=== PATIENT | female | born 1995 | race Caucasian/White ===

== ENCOUNTER 2018-08-23 17:55 | Emergency (ER) | payer SELFPAY ==
[2018-08-23 18:13] VITALS: BP 162/82
== END 2018-08-23 18:26 | disposition left against medical advice (07) ==
LOC: ED 17:55
DX: J02.9 Acute pharyngitis, unspecified (principal); Z53.21 Procedure and treatment not carried out due to patient leaving prior to being seen by health care provider

== ENCOUNTER 2019-03-26 10:15 | Emergency (ER) | payer MEDICAID ==
--- NOTE | 2019-03-26 10:39 | ED ---
Complex/Multi-Sys Presentation - HPI Summary HPI Summary: Patient is a 23 y/o F presenting to the ED for a chief complaint of near syncope on 03/26/19. Patient was showering when she began to feel she would have a syncopal episode, nausea, and a headache. Patient got out of the shower and felt shortness of breath and vision changes she describes as "seeing black. " She states her symptoms occurred for 10 minutes before resolving. Patient denies syncope or abdominal pain. Patient denies similar symptoms in the past. Patient denies a PMHx of migraine headaches, or any other significant PMHx. PSHx is significant for appendectomy. Patient denies any FMHx. She currently has her menstrual period. Patient denies tobacco, alcohol, or drug use. - History Of Current Complaint Chief Complaint: EDSyncope Time Seen by Provider: 03/26/19 10:30 Hx Obtained From: Patient Onset/Duration: Sudden Onset, Resolved Timing: Minutes - 10 minutes Severity Currently: Moderate Severity Initially: Moderate Character: Typical Headache Associated Signs And Symptoms: Positive: Headache, SOB - Resolved, Nausea, Other - Positive near syncope and vision changes, resolved. Negative: Syncope, Abdominal Pain - Allergies/Home Medications Allergies/Adverse Reactions: Allergies Allergy/AdvReac Type Severity Reaction Status Date / Time No Known Allergies Allergy Verified 03/26/19 10:22 PMH/Surg Hx/FS Hx/Imm Hx Previously Healthy: Yes Endocrine/Hematology History: Denies: Hx Diabetes Cardiovascular History: Denies: Hx Hypercholesterolemia, Hx Hypertension Sensory History: Denies: Hx Legally Blind, Hx Deafness Opthamlomology History: Denies: Hx Legally Blind EENT History: Denies: Hx Deafness - Surgical History Surgical History: Yes Surgery Procedure, Year, and Place: Appendectomy Infectious Disease History: No Infectious Disease History: Denies: Traveled Outside the [place] in Last 30 Days - Family History Known Family History: Negative: Diabetes - Social History Occupation: Employed Full-time Lives: With Family Alcohol Use: None Hx Substance Use: No Substance Use Type: Reports: None Hx Tobacco Use: No Smoking Status (MU): Never Smoked Tobacco Do You Chew or Dip Tobacco: No Have You Chewed or Dipped Tobacco in the LAST YEAR: No Have You Smoked in the Last Year: No Review of Systems Positive: Other - Positive vision changes, resolved Positive: Shortness Of Breath - Resolved Positive: Nausea - Resolved. Negative: Abdominal Pain Neurological: Other - Positive near syncope, resolved Positive: Headache - Resolved. Negative: Syncope All Other Systems Reviewed And Are Negative: Yes Physical Exam - Summary Physical Exam Summary: VITAL SIGNS: Reviewed. GENERAL: Patient is a well-developed and nourished FEMALE who is lying comfortable in the stretcher. Patient is not in any acute respiratory distress. HEAD AND FACE: No signs of trauma. No ecchymosis, hematomas or skull depressions. No sinus tenderness. EYES: PERRLA, EOMI x 2, No injected conjunctiva, no nystagmus. EARS: Hearing grossly intact. Ear canals and tympanic membranes are within normal limits. MOUTH: Oropharynx within normal limits. NECK: Supple, trachea is midline, no adenopathy, no JVD, no carotid bruit, no c- spine tenderness, neck with full ROM. CHEST: Symmetric, no tenderness at palpation. LUNGS: Clear to auscultation bilaterally. No wheezing or crackles. CVS: Regular rate and rhythm, S1 and S2 present, no murmurs or gallops appreciated. ABDOMEN: Soft, non-tender. No signs of distention. No rebound, no guarding, and no masses palpated. Bowel sounds are normal. EXTREMITIES: FROM in all major joints, no edema, no cyanosis or clubbing. NEURO: Alert and oriented x 3. No acute neurological deficits. Speech is normal and follows commands. SKIN: Dry and warm. Triage Information Reviewed: Yes Vital Signs On Initial Exam: Initial Vitals Temp Pulse Resp BP Pulse Ox 98.6 F 76 18 128/88 98 03/26/19 10:18 03/26/19 10:18 03/26/19 10:18 03/26/19 10:18 03/26/19 10:18 Vital Signs Reviewed: Yes - Draper Coma Scale Best Eye Response: 4 - Spontaneous Best Motor Response: 6 - Obeys Commands Best Verbal Response: 5 - Oriented Coma Scale Total: 15 Procedures - Sedation Patient Received Moderate/Deep Sedation with Procedure: No Diagnostics - Vital Signs Vital Signs Temp Pulse Resp BP Pulse Ox 03/26/19 10:18 98.6 F 76 18 128/88 98 - Laboratory Result Diagrams: 03/26/19 11:21 03/26/19 11:21 Lab Statement: Any lab studies that have been ordered have been reviewed, and results considered in the medical decision making process. - Radiology Chest X-ray Radiology Interpretation Completed By: Radiologist Summary of Radiographic Findings: Chest X-ray IMPRESSION: No radiographic evidence of acute cardiopulmonary disease. Reviewed by Dr. Salinas. - CT Brain CT CT Interpretation Completed By: Radiologist Summary of CT Findings: Brain CT IMPRESSION: NO ACUTE INTRACRANIAL PATHOLOGY. Reviewed by Dr. Salinas. - EKG 11:04 Cardiac Rate: NL - 85 BPM EKG Rhythm: Sinus Rhythm ST Segment: Normal Ectopy: None Summary of EKG Findings: EKG at 11:04 shows 85 BPM with normal sinus rhythm, no ST elevations, no delta waves, no STEMI. Reviewed and interpreted by Dr. Salinas. Complex Multi-Symp Course/Dx Assessment/Plan: The patient is a 23-year-old female who presents to the emergency department with a chief complaint of having a near syncopal episode. She denies any loss of consciousness. Blood work is without any significant abnormality. Chest x-ray impression: No radiographic evidence of acute cardiopulmonary disease. Head CT impression: No acute intracranial pathology. EKG shows a normal sinus rhythm without any abnormality. In the ED course, the patient has remained stable. The patient was hydrated and had no other complaints. I believe that the patient had a vasovagal episode. Therefore the patient will be discharged home to follow-up with her primary care physician. The patient is hemodynamically stable, and alert and oriented 3. At this point , I discussed all the findings and test results with the patient. She was instructed to return to the emergency room immediately if any of the symptoms return or worsen. Patient understands and agrees. Neurological exam before discharge: Patient is alert and oriented x 3. No acute neurological deficits. Patient's vital signs are stable. Patient is to follow up with PCP in the next 2 -3 days. They understand and agree. Plan of care was discussed with the patient and patient understands and agrees with the plan of care. All questions were answered at the patient's satisfaction. There were no further complaints or concerns. - Diagnoses Provider Diagnoses: Near syncope, Vasovagal episode Discharge ED - Sign-Out/Discharge Documenting (check all that apply): Patient Departure - Discharge - Discharge Plan Condition: Stable Disposition: HOME Patient Education Materials: Near Syncope (ED) Referrals: [facility] [Outside] Additional Instructions: FOLLOW UP WITH [facility] WITHIN 3 DAYS. RETURN TO THE ED FOR ANY WORSENING OR NEW SYMPTOMS. - Billing Disposition and Condition Condition: STABLE Disposition: Home - Attestation Statements Document Initiated by David: Yes Documenting Scribe: Lakshmi Pacheco Provider For Whom David is Documenting (Include Credential): Vitor Salinas MD Scribe Attestation: ILakshmi, scribed for Vitor Salinas MD on 03/26/19 at 2103. Scribe Documentation Reviewed: Yes Provider Attestation: The documentation as recorded by the [email or web address] accurately reflects the service I personally performed and the decisions made by me, Vitor Salinas MD Status of Scribe Document: Viewed NIH Scale - NIH Scale Level of Consciousness: Alert/Keenly Responsive Ask Patient the Month and His/Her Age: Both Correct Ask Pt to Open/Close Eyes and Hot Car Operator/Release Non-Paretic Hand: Both Correctly Best Gaze (Only Horizontal Eye Movement): Normal Visual Field Testing: No Visual Loss Facial Paresis-Pt to Smile & Close Eyes or Grimace Symmetry: Normal/Symmetrical Motor Function - Right Arm: No Drift-Holds 10 Seconds Motor Function - Left Arm: No Drift-Holds 10 Seconds Motor Function - Right Leg: No Drift-Holds 10 Seconds Motor Function - Left Leg: No Drift-Holds 10 Seconds Limb Ataxia-Must be out of Proportion to Weakness Present: Absent Sensory (Use Pinprick to Test Arms/Legs/Trunk/Face): Normal Best Language (Describe Picture, Name Items): No Aphasia Dysarthria (Read Several Words): Normal Extinction and Inattention: No Abnormality Total Score: 0
[2019-03-26] MEDS ORDERED: NS 0.9% 1000 ML** 1,000 ML IV ONE (10:40)
[2019-03-26 11:30] LABS: ABS Eosinophils 0.1 10^3/ul (0-0.6); ABS Lymphocytes 1.6 10^3/ul (1.0-4.8); ABS Monocytes 0.5 10^3/ul (0-0.8); ABS Neutrophils 6.1 10^3/ul (1.5-7.7); Eosinophil % 0.9 %; Hematocrit 45 % (35-47); Mean Corpuscular HGB Conc 34 g/dL (31-36); Mean Corpuscular Hemoglobin 28 pg (27-31); Mean Corpuscular Volume 84 fL (80-97); Mean Platelet Volume 9.4 fL (7.4-10.4); Platelet Count 189 10^3/uL (150-450); Red Cell Distribution Width 15 % (10-15); White Blood Count 8.2 10^3/uL (3.5-10.8)
[2019-03-26 12:01] LABS: ALT 19 U/L (7-52); AST 21 U/L (13-39); Albumin/Globulin Ratio 1.9 (1-3); Alkaline Phosphatase 48 U/L (34-104); Anion Gap 9 mmol/L (2-11); BUN/Creatinine Ratio 21.1 (8-20); Blood Urea Nitrogen 16 mg/dL (6-24); CO2 Carbon Dioxide 23 mmol/L (22-32); Chloride 109 mmol/L (101-111); EGFR African American 113.1 (>60); EGFR Non-African American 93.5 (>60); Globulin 2.6 g/dL (2-4); Glucose 100 mg/dL (70-100); Potassium 3.7 mmol/L (3.5-5.0); Sodium 141 mmol/L (135-145); Total Protein 7.6 g/dL (6.4-8.9)
[2019-03-26 12:19] LABS: Alcohol < 10 mg/dL (<10)
[2019-03-26 13:28] LABS: Urine Appearance Clear; Urine Bilirubin Negative (Negative); Urine Blood Negative (Negative); Urine Color Straw; Urine Glucose Negative (Negative); Urine Ketones Trace (Negative); Urine Nitrite Negative (Negative); Urine Protein Negative (Negative); Urine Specific Gravity 1.008 (1.010-1.030); Urine Urobilinogen Negative (Negative)
[2019-03-26 13:32] VITALS: BP 116/65
[2019-03-26 14:00] LABS: Urine Benzodiazepine Screen None Detected (None Detect); Urine Opiates Screen None Detected (None Detect)
== END 2019-03-26 13:37 | disposition home or self-care (01) ==
LOC: ED 10:15
DX: R55 Syncope and collapse (principal)
CPT/HCPCS: 36415; 70450; 71046; 80053; 80307; 80320; 81003; 83605; 83735; 84443; 84484; 85025; 93005; 96360; 96361; 99282; G0480